=== PATIENT | male | born 1995 | race Caucasian/White ===

== ENCOUNTER → 2021-01-21 | Outpatient (CLI) | payer BC, OTHER ==
[~2021-01-21] MED LIST: ATOR20TA66; NAPR-243 PO; ONDA4TAB11 PO
--- NOTE | 2021-01-21 12:39 | Diagnostic Imaging Report ---
INDICATION: COVID, CHEST PAIN, OVER WEIGHT, GINGIVITIS, NASAL CONGESTION. TECHNIQUE: Two view chest 12:35 PM CORRELATION STUDY: None FINDINGS: The heart size, mediastinal configuration and pulmonary vasculature are within normal limits. The lungs are clear with no consolidating infiltrate. There is no significant pleural effusion or pneumothorax. Visualized osseous structures are unremarkable. IMPRESSION: 1. Negative for acute abnormality of the chest. Dictated by: Dictated on workstation # [id number]
== END ==
LOC: RAD 12:04
PROVIDERS: ATTEND Physician Assistant
DX: U07.1 COVID-19 (principal)
CPT/HCPCS: 71046

== ENCOUNTER 2021-01-22 01:08 | Emergency (ER) | payer BC, OTHER ==
[~2021-01-22] VITALS: Ht 177.8 cm; Wt 90.7 kg
[~2021-01-22 01:08] MED LIST changes: -ATOR20TA66; -ONDA4TAB11 PO
[2021-01-22] MEDS ORDERED: ATOR20TA66 (01:23)
--- NOTE | 2021-01-22 01:39 | ED General ---
General Chief Complaint: COVID19 Suspect/Confirmed Stated Complaint: COVID+,STIFF NECK,BODY ACHES,FEVER 102. Nursing Triage Note: dx covid + 01/16/21, continued sore throat, body aches. reports fever 102 x2 hrs. Source of Information: Patient Exam Limitations: No Limitations History of Present Illness Date Seen by Provider: Jan 22, 2021 Time Seen by Provider: 01:30 Initial Comments Patient is a 25-year-old male who is Covid positive who presents to the emergency department today with a chief complaint of body aches, dizziness, mild sore throat, fever. Patient states that he has had symptoms for exactly a week. He was diagnosed Covid positive on Monday of last weekend. He denies chest pain, shortness of breath, productive cough. No diarrhea or problems with urination. He states he has not really eaten much for the last week. States that he has been taking aspirin, what sounds like 4 baby aspirin at a time for his fever. He is not currently nauseated but states he has had some nausea. Patient states he had a chest x-ray done earlier today at this facility, I have reviewed this and it is negative for any acute infiltrates or effusions. All other review of systems reviewed and negative except as stated. Timing/Duration: 1 Week Severity: Moderate Associated Systoms: Fever/Chills, Loss of Appetite, Nausea/Vomiting Allergies and Home Medications Allergies Coded Allergies: No Known Drug Allergies (Unverified , 01/22/21) Patient Home Medication List Home Medication List Reviewed: Yes Atorvastatin Calcium (Atorvastatin Calcium) 20 Mg Tablet, (Reported) Entered as Reported by: YULIET LOPEZ on 01/22/21 0123 Last Action: New Order Naproxen (Naprosyn) 500 Mg Tablet, 1 EACH PO TID PRN Prescribed by: KRISTIN SOLORIO on 01/15/12 1410 Review of Systems Review of Systems Constitutional: see HPI EENTM: throat pain Respiratory: no symptoms reported Cardiovascular: no symptoms reported Gastrointestinal: nausea Genitourinary: no symptoms reported Musculoskeletal: other (body aches) Skin: no symptoms reported Psychiatric/Neurological: No Symptoms Reported All Other Systems Reviewed Negative Unless Noted: Yes Past Wueokaj-Fpxszl-Cyifab Hx Patient Social History Tobacco Use?: Yes Tobacco type used: Cigarettes Substance use?: Yes Substance type: Marijuana Alcohol Use?: Yes Pt feels they are or have been: No Past Medical History Surgery/Hospitalization HX: high cholesterol, abdominal surgery as child Physical Exam Vital Signs Vital Signs - First Documented 01/22/21 01:17 Temp 38.4 Pulse 91 Resp 16 B/P (MAP) 131/92 (105) Pulse Ox 96 O2 Delivery Room Air Capillary Refill : Less Than 3 Seconds Height, Weight, BMI Height: '" Weight: lbs. oz. kg; 28.00 BMI Method:Stated General Appearance: No Apparent Distress, WD/WN Eyes: Bilateral Eye Normal Inspection, Bilateral Eye PERRL, Bilateral Eye EOMI HEENT: PERRL/EOMI, Normal ENT Inspection, Pharynx Normal Neck: Normal Inspection, Supple Respiratory: Lungs Clear, Normal Breath Sounds, No Accessory Muscle Use, No Respiratory Distress Cardiovascular: Regular Rate, Rhythm, Extra Beats (with pauses) Gastrointestinal: Normal Bowel Sounds, Non Tender, Soft Extremity: Normal Inspection, Normal Range of Motion Neurologic/Psychiatric: Alert, Oriented x3, No Motor/Sensory Deficits, Normal Mood/Affect Skin: Normal Color, Warm/Dry Progress/Results/Core Measures Suspected Sepsis SIRS Temperature: Pulse: 91 Respiratory Rate: 16 Laboratory Tests 01/22/21 01:49: White Blood Count 4.4 Blood Pressure 131 /92 Mean: 105 Laboratory Tests 01/22/21 01:49: Creatinine 1.09, Platelet Count 154 Results/Orders Lab Results Laboratory Tests Test 01/22/21 01:49 Range/Units White Blood Count 4.4 4.3-11.0 10^3/uL Red Blood Count 5.18 4.30-5.52 10^6/uL Hemoglobin 15.7 13.3-17.7 g/dL Hematocrit 45 40-54 % Mean Corpuscular Volume 87 80-99 fL Mean Corpuscular Hemoglobin 30 25-34 pg Mean Corpuscular Hemoglobin Concent 35 32-36 g/dL Red Cell Distribution Width 11.9 10.0-14.5 % Platelet Count 154 130-400 10^3/uL Mean Platelet Volume 11.1 9.0-12.2 fL Immature Granulocyte % (Auto) 0 % Neutrophils (%) (Auto) 54 42-75 % Lymphocytes (%) (Auto) 33 12-44 % Monocytes (%) (Auto) 12 0-12 % Eosinophils (%) (Auto) 0 0-10 % Basophils (%) (Auto) 0 0-10 % Neutrophils # (Auto) 2.4 1.8-7.8 10^3/uL Lymphocytes # (Auto) 1.5 1.0-4.0 10^3/uL Monocytes # (Auto) 0.5 0.0-1.0 10^3/uL Eosinophils # (Auto) 0.0 0.0-0.3 10^3/uL Basophils # (Auto) 0.0 0.0-0.1 10^3/uL Immature Granulocyte # (Auto) 0.0 0.0-0.1 10^3/uL Sodium Level 134 L 135-145 MMOL/L Potassium Level 4.0 3.6-5.0 MMOL/L Chloride Level 99 98-107 MMOL/L Carbon Dioxide Level 19 L 21-32 MMOL/L Anion Gap 16 H 5-14 MMOL/L Blood Urea Nitrogen 11 7-18 MG/DL Creatinine 1.09 0.60-1.30 MG/DL Estimat Glomerular Filtration Rate 84 BUN/Creatinine Ratio 10 Glucose Level 94 70-105 MG/DL Calcium Level 9.5 8.5-10.1 MG/DL My Orders Orders - JUMANA GIBSON MD Ekg Tracing (01/22/21 01:35) Ed Iv/Invasive Line Start (01/22/21 01:35) Cbc With Automated Diff (01/22/21 01:35) Basic Metabolic Panel (01/22/21 01:35) Ns Iv 1000 Ml (Sodium Chloride 0.9%) (01/22/21 01:45) Acetaminophen Tablet (Tylenol Tablet) (01/22/21 01:45) Medications Given in ED Current Medications Medications Dose Ordered Sig/Ameya Route Start Time Stop Time Status Last Admin Dose Admin Acetaminophen 1,000 mg ONCE ONCE PO 01/22/21 01:45 01/22/21 01:47 DC 01/22/21 01:53 1,000 MG Vital Signs/I&O 01/22/21 01:17 Temp 38.4 Pulse 91 Resp 16 B/P (MAP) 131/92 (105) Pulse Ox 96 O2 Delivery Room Air Capillary Refill : Less Than 3 Seconds Blood Pressure Mean: 105 Progress Note : Time: 02:51 Progress Note Patient reassessed, feeling better after IV fluids and resolution of fever. He tells me that he is scheduled to have the monoclonal antibody infusion at 1040 this morning. I have advised him to take Tylenol and/or ibuprofen and to keep the appointment for this morning. Return precautions are given. Patient is comfortable with the plan of care. All questions are sought and answered. ECG Initial ECG Impression Date: Jan 22, 2021 Initial ECG Impression Time: 01:38 Initial ECG Rate: 98 Initial ECG Rhythm: S.Tach Initial ECG Intervals: Normal Initial ECG Impression: Nonspecific Changes Comment Sinus arrhythmia Departure Impression Primary Impression: COVID-19 Disposition: 01 HOME, SELF-CARE Condition: Stable Departure-Patient Inst. Decision time for Depature: 02:48 Referrals: NEEL OTERO MD (PCP/Family) Primary Care Physician Patient Instructions: COVID-19 Overview Add. Discharge Instructions: Drink plenty of fluids to stay well-hydrated. You can take Tylenol, extra strength, 2 tablets every 6 hours as needed for any temperature over 100.4. You can also take ibuprofen 600 mg which is 3 tablets every 6-8 hours with food as needed for body aches. Keep your appointment for the antibody infusion this morning. Follow-up with your primary care physician as needed. Return to the emergency department for any new, concerning or emergent complaints. Scripts Ondansetron (Ondansetron Odt) 4 Mg Tab.rapdis 4 MG PO Q8H PRN for nausea, #15 TAB Prov: JUMANA GIBSON MD 01/22/21 JUMANA IGBSON MD Jan 22, 2021 01:39
[2021-01-22] MEDS ORDERED: NS IV 1000 ML 1,000 ML IV SCH (01:45)
[2021-01-22] MEDS ORDERED: ACETAMINOPHEN 500 MG TAB (TYLENOL) PO ONE (01:45)
[2021-01-22 01:58] LABS: BASOPHILS % (AUTO) 0 % (0-10); EOSINOPHILS % (AUTO) 0 % (0-10); HEMATOCRIT 45 % (40-54); HEMOGLOBIN 15.7 g/dL (13.3-17.7); LYMPHOCYTES # (AUTO) 1.5 10^3/uL (1.0-4.0); LYMPHOCYTES % (AUTO) 33 % (12-44); MEAN CORPUSCULAR HEMOGLOBIN 30 pg (25-34); MEAN CORPUSCULAR HGB CONC 35 g/dL (32-36); MEAN CORPUSCULAR VOLUME 87 fL (80-99); MEAN PLATELET VOLUME 11.1 fL (9.0-12.2); MONOCYTES # (AUTO) 0.5 10^3/uL (0.0-1.0); MONOCYTES % (AUTO) 12 % (0-12); NEUTROPHILS # (AUTO) 2.4 10^3/uL (1.8-7.8); NEUTROPHILS % (AUTO) 54 % (42-75); PLATELET COUNT 154 10^3/uL (130-400); WHITE BLOOD COUNT 4.4 10^3/uL (4.3-11.0)
[2021-01-22 02:12] LABS: CALCIUM 9.5 MG/DL (8.5-10.1); CREATININE SERUM 1.09 MG/DL (0.60-1.30)
[2021-01-22] MEDS ORDERED: ONDA4TAB11 PO (02:53)
[2021-01-22] MEDS ORDERED: RX-ONDANSETRON 4 MG ODT (ZOFRAN) PPK #4 PO STA (02:54)
[2021-01-22 03:07] VITALS: BP 124/76
== END 2021-01-22 03:09 | disposition home or self-care (01) ==
LOC: EDUNIT# 01:08 → ER 01:12
DX: U07.1 COVID-19 (principal); Z72.0 Tobacco use
CPT/HCPCS: 36415; 80048; 85025; 93005

== ENCOUNTER 2021-01-22 10:45 | Outpatient (CLI) | payer BC ==
[~2021-01-22] VITALS: Ht 177.8 cm; Wt 90.7 kg
[2021-01-22 10:38] VITALS: BP 134/77
[~2021-01-22 10:45] MED LIST changes: +ATOR20TA66; +ONDA4TAB11 PO
[2021-01-22] MEDS ORDERED: CASIRIVIMAB/IMDEVIMAB 1,200 MG in NS (IVPB) 250 ML IV ONE (11:00)
[2021-01-22] MEDS ORDERED: EPINEPHrine INJECTION 1 MG/ML AMP IM PRN (11:00)
[2021-01-22] MEDS ORDERED: diphenhydrAMINE 50 MG/ML INJ (BENADRYL) IV PRN (11:00)
[2021-01-22] MEDS ORDERED: ACETAMINOPHEN 500 MG TAB (TYLENOL) PO PRN (11:00)
[2021-01-22] MEDS ORDERED: ONDANSETRON 4 MG/2 ML (SDV) Z0FRAN IV PRN (11:00)
[2021-01-22 12:11] VITALS: BP 121/72
== END 2021-01-22 12:34 | disposition home or self-care (01) ==
LOC: INFUSION 10:45
PROVIDERS: ATTEND Physician Assistant
DX: U07.1 COVID-19 (principal)

== ENCOUNTER → 2021-02-05 | Outpatient (CLI) | payer BC | LOC: CARD 09:00 | PROVIDERS: ATTEND Nurse Practitioner Family | DX: I49.9 Cardiac arrhythmia, unspecified (principal) | CPT/HCPCS: 93225; 93226 ==

== ENCOUNTER 2023-01-13 14:07 | Emergency (ER) | payer OTHER ==
[~2023-01-13] VITALS: Ht 180.3 cm; Wt 81.6 kg
[2023-01-13 14:18] VITALS: BP 135/74
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
== END 2023-01-13 15:09 | disposition home or self-care (01) ==
LOC: EDUNIT# 14:07 → ER 14:10
DX: S43.402A Unspecified sprain of left shoulder joint, initial encounter (principal); S50.312A Abrasion of left elbow, initial encounter; V89.2XXA Person injured in unspecified motor-vehicle accident, traffic, initial encounter; Y92.410 Unspecified street and highway as the place of occurrence of the external cause
CPT/HCPCS: 73030